=== PATIENT | female | born 1990 | race Caucasian/White ===

== ENCOUNTER 2021-03-04 14:14 | Outpatient (CLI) | payer BC, SELFPAY ==
--- NOTE | 2021-03-04 14:19 | US_ITS ---
WS: [id number] TRANSABDOMINAL PELVIC AND TRANSVAGINAL PELVIC ULTRASOUND HISTORY: ABDOMINAL PAIN COMPARISON: None available. Uterus: 7.1 cm x 4.5 cm x 4.8 cm. Uterus is retroverted. No fibroid or mass. Endometrium: 1.0 cm. Normal trilaminar appearance. Right ovary: 3.6 cm x 3.2 cm x 1.5 cm. There are small peripheral follicles. Normal vascularity. Left ovary: 2.1 cm x 1.8 cm x 1.6 cm. Small peripheral follicles with normal vascularity. No free fluid. US/US pelvic with transvaginal IMPRESSION: Normal transabdominal and transvaginal pelvic ultrasound.
== END 2021-03-04 14:15 | disposition home or self-care (01) ==
LOC: RAD 14:17
PROVIDERS: PCP Clinical Nurse Specialist Adult Health; Visit Provider Clinical Nurse Specialist Adult Health
DX: R10.9 Unspecified abdominal pain (principal)
CPT/HCPCS: 76830; 76856

== ENCOUNTER → 2022-07-13 07:55 | Outpatient (BNVA) | payer BC, SELFPAY | PROVIDERS: PCP Clinical Nurse Specialist Adult Health; Visit Provider Clinical Nurse Specialist Adult Health | DX: N76.0 Acute vaginitis (principal) | CPT/HCPCS: 87070; 87205 ==

== ENCOUNTER → 2023-12-01 09:58 | Outpatient (BNVA) | payer BC, SELFPAY | PROVIDERS: PCP Clinical Nurse Specialist Adult Health; Visit Provider Clinical Nurse Specialist Adult Health | DX: E66.01 Morbid (severe) obesity due to excess calories (principal); R14.0 Abdominal distension (gaseous); F41.9 Anxiety disorder, unspecified; F33.1 Major depressive disorder, recurrent, moderate | CPT/HCPCS: 80053; 82306; 82607; 83036; 84439; 84443; 85025 ==

== ENCOUNTER → 2023-12-28 10:59 | Outpatient (BNVA) | payer BC, SELFPAY | PROVIDERS: PCP Clinical Nurse Specialist Adult Health; Visit Provider Clinical Nurse Specialist Adult Health | DX: R25.2 Cramp and spasm (principal); R03.0 Elevated blood-pressure reading, without diagnosis of hypertension; R10.9 Unspecified abdominal pain | CPT/HCPCS: 80048; 83735 ==